=== PATIENT | female | born 1980 | race African-American/Black ===

== ENCOUNTER 2022-06-23 15:12 | Emergency (ER) | payer OTHER ==
[~2022-06-23] VITALS: Ht 167.6 cm; Wt 63.0 kg
[2022-06-23 15:13] VITALS: BP 127/83
== END 2022-06-23 18:47 | disposition left against medical advice (07) ==
LOC: ER 15:12
DX: Z53.21 Procedure and treatment not carried out due to patient leaving prior to being seen by health care provider (principal)